=== PATIENT | female | born 1970 | race Asian ===

== ENCOUNTER 2019-08-04 07:34 | Emergency (ER) | payer OTHER ==
[~2019-08-04] VITALS: Ht 167.6 cm; Wt 102.1 kg
[2019-08-04 07:50] VITALS: TEMP 97.3
[2019-08-04 08:10] VITALS: BP 132/88
== END 2019-08-04 08:13 | disposition home or self-care (01) ==
LOC: ED 07:34
DX: L20.89 Other atopic dermatitis (principal)
CPT/HCPCS: 99281

== ENCOUNTER 2021-01-01 11:35 | Emergency (ER) | payer OTHER ==
[~2021-01-01] VITALS: Ht 167.6 cm; Wt 110.2 kg
[2021-01-01 11:39] VITALS: BP 141/91; TEMP 98
== END 2021-01-01 13:55 | disposition home or self-care (01) ==
LOC: ED 11:35
DX: M72.2 Plantar fascial fibromatosis (principal)
CPT/HCPCS: 96372; 99283; J1885

== ENCOUNTER 2021-02-11 19:26 | Emergency (ER) | payer OTHER ==
[~2021-02-11] VITALS: Ht 167.6 cm; Wt 111.1 kg
[2021-02-11 19:30] VITALS: BP 148/78; TEMP 98
== END 2021-02-11 21:08 | disposition home or self-care (01) ==
LOC: ED 19:26
DX: S80.02XA Contusion of left knee, initial encounter (principal); S80.212A Abrasion, left knee, initial encounter; W18.39XA Other fall on same level, initial encounter; Y92.098 Other place in other non-institutional residence as the place of occurrence of the external cause
CPT/HCPCS: 96372; 99283; J1885